=== PATIENT | male | born 1960 | race Caucasian/White ===

== ENCOUNTER 2023-09-18 10:49 | Day surgery (SDC) | payer OTHER, SELFPAY ==
[2023-09-11 13:54] VITALS: BMI 32.5
--- NOTE | 2023-09-17 08:40 | P.HP_ITS ---
History of Present Illness History of Present Illness Date Patient Seen: 09/18/23 Time Patient Seen: 13:45 Chief complaint: Open umbilical hernia repair Narrative: 63M PMH ANAHI obestity, with a symptomatic reducible umbilical hernia. [facility] Medical History ED (erectile dysfunction) ANAHI (obstructive sleep apnea) Surgical History H/O tenotomy H/O knee surgery Family History Father Stroke Lung cancer Glaucoma Mother Glaucoma Social History marital status: household members: spouse lives independently: Yes occupational status: employed Smoking Status: Former smoker alcohol intake: current substance use type: marijuana Meds Home Medications and Allergies Home Medications Medication Instructions Recorded Confirmed Type No Known Home Medications 06/14/23 09/11/23 History Allergies Allergy/AdvReac Type Severity Reaction Status Date / Time No Known Drug Allergies Allergy Unverified 06/14/23 10:27 Exam Narrative Exam Narrative: Gen-Adult man alert and oriented Abdomen-Soft reducible umbilical hernia Assessment & Plan Assessment & Plan narrative: 63M with a symptomatic reducible umbilical hernia here for elective repair. Overview of the operation discussed. Operative risks including hemorrhage, infection, reoccurrence, damage to surrounding structures reviewed. He provides his consent to proceed. Time-Based Coding :: [TOTAL MINUTES] spent with patient and on the chart (including review of chart, obtaining history, exam, reviewing outside data, placing orders, documenting exam and treatment plan, and counseling patient) on [DATE].
[2023-09-18 11:13] VITALS: BP 161/94; PULSE 74; RESP 16; TEMP 37; O2SAT 99; BMI 33.9
[2023-09-18] MEDS: ACETAMINOPHEN 325 MG TABLET 975 MG PO (12:24)
[2023-09-18] MEDS: LACTATED RINGERS 1,000 ML 21 ML IV (12:25)
[2023-09-18] MEDS: LACTATED RINGERS 1,000 ML 42 ML IV (14:05)
[2023-09-18] MEDS: CEFAZOLIN 2 GM/100 ML PREMIX 100 ML IV (14:15)
--- NOTE | 2023-09-18 14:24 | SUR.OPER ---
Supine on padded OR bed, head on pillow, arms secured on padded arm boards at <90 degrees abduction, legs uncrossed, safety belt at thigh, tape over blanket over lower legs.
[2023-09-18] MEDS: BUPIVACAINE 0.25% (PF) VIAL 30 ML INJ (14:35)
[2023-09-18 14:58] VITALS: BP 176/106; PULSE 87; RESP 12; TEMP 37.1; O2SAT 94
[2023-09-18 15:02] VITALS: BP 169/96; PULSE 81; RESP 12; O2SAT 94
[2023-09-18 15:08] VITALS: BP 157/81; PULSE 79; RESP 13; O2SAT 100
[2023-09-18 15:14] VITALS: BP 155/78; PULSE 79; RESP 12; TEMP 37.1; O2SAT 98
--- NOTE | 2023-09-21 09:32 | PM.OP.1 ---
Operative Date/Time/Diagnoses Date of procedure: 09/18/23 Time of procedure: 09:32 Pre-op diagnosis: umbilical hernia Post-op diagnosis: same Procedure & Clinicians Procedure: Open umbilical hernia repair Same procedure as scheduled: Yes Indications: Symptomatic umbilical hernia Surgeon: Andrae James Lasting Room Supervisor: Nikita Og Anesthesia Type: General Operative Notes Findings: 3 cm fascial defect containing omentum Estimated Blood Loss (mL): 10 Procedure in detail: Patient was brought to the operating room placed supine on the table. Bilateral lower extremity compression devices were applied. General anesthesia was induced and they were intubated with an endotracheal tube. They received 2 g of Ancef prior to skin incision. They were prepped and draped in sterile fashion. A time-out was performed. A curvilinear incision was made inferior to the umbilicus. The subcutaneous tissues were divided. The umbilical hernia was identified and the hernia sac was dissected off the umbilical skin and circumferentially off of the fascia defect. The hernia sac was sharply opened and contained viable omentum. The omentum was reduced back into the abdomen. Using blunt dissection I carefully carefully freed the hernia sac from beneath the fascia defect in order to accomodate the mesh. The fascia defect was 3 cm in maximal diameter. A Bard Ventralex ST hernia patch 8 cm was inserted beneath the fascia defect and above the peritoneum in a sublay position. The mesh was anchored in multiple locations using Ethibond suture to the fascia and the fascial defect was closed over the mesh. The umbilical skin was tacked to the subcutaneous tissues and then the remainder of the subcutaneous tissues were reapproximated using 3 0 Vicry,l skin closed with 4 0 Monocryl followed by the application of Dermabond and Steri-Strips. Sponge instrument count at the end of the operation was correct. Patient tolerated procedure well was extubated and transferred to postoperative care unit in stable condition. Complications: none Post-operative Condition: stable Disposition: same day surgery
== END 2023-09-18 15:30 | disposition home or self-care (01) ==
PROVIDERS: PCP Student in an Organized Health Care Education/Training Program; Referring Provider Surgery; Visit Provider Surgery
PROC: (CPT 49593; principal; 2023-09-18 12:15)
DX: K42.9 Umbilical hernia without obstruction or gangrene (principal); G47.33 Obstructive sleep apnea (adult) (pediatric)
CPT/HCPCS: 49593; J0690; J1100; J1885; J2405; J2704; J3010

== ENCOUNTER → 2024-01-22 16:33 | Outpatient (CLI) | payer OTHER, SELFPAY ==
--- NOTE | 2024-01-22 16:36 | EKG_ITS ---
[address] [address] Test Date: 2024-01-22 Pat Name: Eliezer Perry Department: [facility] Room: Gender: Male Systems Designer: PINA : [id number] Requested By: Order Number: [id number] Reading MD: Asad Hopper Measurements Intervals [place] Rate: 64 P: 40 WV: 184 QRS: 20 QRSD: 102 T: 17 QT: 388 QTc: 400 Interpretive Statements Normal sinus rhythm Electronically Signed On 01-22-2024 19:05:22 PST by Asad Hopper
[2024-01-22 17:43] LABS: Add Manual Diff / Slide Review NO; Basophils Absolute Auto 0 /uL (0-100); Basophils Percent Auto 0.6 % (0-2); Eosinophils Absolute Auto 200 /uL (0-450); Eosinophils Percent Auto 3.5 % (2-4); Hematocrit 47.1 % (41-53); Lymphocytes Absolute Auto 2100 /uL (1100-4500); Lymphocytes Percent Auto 30.3 % (25-40); Mean Corpuscular HGB Conc 34.1 % (30-36); Mean Corpuscular Hemoglobin 32.6 PG (26-34); Mean Corpuscular Volume 95.7 fL (80-100); Monocytes Absolute Auto 900 /uL (0-900); Monocytes Percent Auto 12.7 % (3-14); Neutrophils Absolute Auto 3600 /uL (1500-7000); Neutrophils Percent Auto 52.9 % (50-75); Platelet Count 258 X10^3/uL (150-400); Red Blood Cell Count 4.92 X10^6/uL (4.5-5.9); Red Cell Distribution Width 13.4 % (11.6-14.8); White Blood Cell Count 6.8 X10^3/uL (4.5-11.0)
[2024-01-22 17:44] LABS: Appearance Urine UA CLEAR; Bilirubin Urine UA NEGATIVE (NEGATIVE); Color Urine UA YELLOW; Glucose Urine UA NEGATIVE (Negative); Ketones Urine UA 2+ (NEGATIVE); Leukocyte Esterase Urine UA NEGATIVE (NEGATIVE); Nitrite Urine UA NEGATIVE (Negative); Occult Blood Urine UA NEGATIVE (Negative); Protein Urine UA NEGATIVE (Negative); Specific Gravity Urine UA 1.025 (1.000-1.035); Urobilinogen Urine UA 0.2 E.U./dL (0.2); pH Urine UA 5.5 (4.5-8.0)
[2024-01-22 17:56] LABS: Hemoglobin A1C% w Est Avg Glu 5.1 % (4.0-6.0)
[2024-01-22 18:06] LABS: Bacteria Urine Occasional (0-1); Culture Indicated Urine Cult Not Indicated; Mucus Urine 2+ (Negative); RBC Urine 0-1/HPF (0-5/HPF); Squamous Epithelial Cell Urine 0-1 /HPF (0-5/HPF); Urine Volume 10mL (spun); WBC Urine 0-1/HPF (0-5/HPF)
[2024-01-22 18:20] LABS: BUN Creatinine Ratio 20.2 (6-22); Blood Urea Nitrogen 23 mg/dL (9-20); Calcium 9.6 mg/dL (8.4-10.2); Carbon Dioxide 27 mmol/L (22-32); Chloride 103 mmol/L (98-107); Estimated Glomerular Filt Rate > 60 mL/min (>60); Glucose 72 mg/dL (80-110); HEMOLYSIS < 15 (0-50); Potassium 4.8 mmol/L (3.4-5.1); Sodium 135 mmol/L (137-145)
== END ==
LOC: LAB 16:35
PROVIDERS: PCP Student in an Organized Health Care Education/Training Program; Referring Provider Orthopaedic Surgery; Visit Provider Orthopaedic Surgery
DX: Z01.818 Encounter for other preprocedural examination (principal); Z01.812 Encounter for preprocedural laboratory examination; R73.9 Hyperglycemia, unspecified; N39.0 Urinary tract infection, site not specified
CPT/HCPCS: 36415; 80048; 81001; 83036; 85025; 93005